=== PATIENT | male | born 1970 | race African-American/Black ===

== ENCOUNTER 2021-02-09 13:36 | Outpatient (CLI) | payer OTHER ==
[2021-02-09 14:03] LABS: PLATELET COUNT 227 K/uL (142-355)
[2021-02-09 14:44] LABS: POTASSIUM 3.8 mmol/L (3.6-5.2)
== END 2021-02-09 19:16 | disposition home or self-care (01) ==
LOC: LABW 13:36
PROVIDERS: ATTEND Family Medicine
DX: R51.9 Headache, unspecified (principal); I10 Essential (primary) hypertension; R42 Dizziness and giddiness; H54.7 Unspecified visual loss; Z83.3 Family history of diabetes mellitus
CPT/HCPCS: 36415; 80053; 80061; 83036; 84439; 84443; 85027; Q9963